=== PATIENT | male | born 1970 | race Caucasian/White ===

== ENCOUNTER 2016-09-13 18:08 | Emergency (ER) | payer MEDICAID ==
[~2016-09-13] VITALS: Ht 188 cm; Wt 77.1 kg
[2016-09-13 18:16] VITALS: BP 126/87
[2016-09-13] MEDS ORDERED: KETOROLAC TROMETHAMINE INJ 60 MG/2 ML VIAL IM ONE ×2 (18:30→18:32)
== END 2016-09-13 19:02 | disposition home or self-care (01) ==
LOC: ER 18:11
DX: M54.5 Low back pain (principal)
CPT/HCPCS: A4606; J1885; Z7610

== ENCOUNTER 2016-11-12 12:23 | Emergency (ER) | payer MEDICAID ==
[~2016-11-12] VITALS: Ht 188 cm; Wt 79.4 kg
[2016-11-12 12:23] VITALS: BP 133/75
[2016-11-12] MEDS ORDERED: IBUPROFEN 600 MG TABLET PO ONE ×2 (13:30→13:47)
--- NOTE | 2016-11-12 13:30 | NUR ---
"LATE ENTRY CHARTING" PT WAS GIVEN IBUPROFEN 600 MG ORDERED
[2016-11-12] MEDS ORDERED: CEPHALEXIN MONOHYDRATE 250 MG CAPSULE PO ONE ×2 (13:47→14:00)
== END 2016-11-12 13:57 | disposition home or self-care (01) ==
LOC: ER 12:24
DX: M25.571 Pain in right ankle and joints of right foot (principal)
CPT/HCPCS: 99283; A4606; Z7610

== ENCOUNTER 2017-06-08 11:37 | Emergency (ER) | payer MEDICAID ==
[~2017-06-08] VITALS: Ht 188 cm; Wt 74.8 kg
[2017-06-08 11:46] VITALS: BP 120/69
[2017-06-08] MEDS ORDERED: KETOROLAC TROMETHAMINE INJ 30 MG/ML VIAL ONE (12:26)
[2017-06-08] MEDS ORDERED: KETOROLAC TROMETHAMINE INJ 30 MG/ML VIAL IM ONE (12:30)
== END 2017-06-08 12:30 | disposition home or self-care (01) ==
LOC: ER 11:39
DX: M54.40 Lumbago with sciatica, unspecified side (principal)
CPT/HCPCS: A4606; J1885; Z7610

== ENCOUNTER 2020-02-18 09:28 | Emergency (ER) | payer MEDICAID ==
[~2020-02-18] VITALS: Ht 182.9 cm; Wt 79.4 kg
[2020-02-18 09:41] VITALS: BP 133/67
--- NOTE | 2020-02-18 09:47 | NUR ---
DR. RETANA AT BEDSIDE.
--- NOTE | 2020-02-18 10:40 | NUR ---
Patient discharged to home in stable condition. Written and verbal after care instructions given. Patient verbalizes understanding of instruction.
== END 2020-02-18 10:41 | disposition home or self-care (01) ==
LOC: ER 09:28
DX: S63.592A Other specified sprain of left wrist, initial encounter (principal); S63.591A Other specified sprain of right wrist, initial encounter; S33.5XXA Sprain of ligaments of lumbar spine, initial encounter; S60.221A Contusion of right hand, initial encounter; Z98.890 Other specified postprocedural states; W18.39XA Other fall on same level, initial encounter; Y93.89 Activity, other specified; Y92.89 Other specified places as the place of occurrence of the external cause; Y99.8 Other external cause status
CPT/HCPCS: 73110; 73130-TC

== ENCOUNTER 2020-10-20 13:56 | Emergency (ER) | payer MEDICAID ==
[~2020-10-20] VITALS: Ht 188 cm; Wt 79.8 kg
[2020-10-20 14:47] LABS: BASOPHILS # (AUTO) 0.1 /CMM (0.0-0.2); BASOPHILS % (AUTO) 0.7 % (0.0-2.0); EOSINOPHILS % (AUTO) 1.4 % (0.0-6.0); HEMATOCRIT 43 % (39-51); HEMOGLOBIN 13.4 g/dL (13.5-17.5); LYMPHOCYTES # (AUTO) 1.9 /CMM (0.8-4.8); LYMPHOCYTES % (AUTO) 21.2 % (20.0-44.0); MEAN CORPUSCULAR HGB CONC 31 g/dl (31.0-36.0); MEAN CORPUSCULAR VOLUME 64 fL (80-96); MONOCYTES # (AUTO) 0.5 /CMM (0.1-1.30); MONOCYTES % (AUTO) 5.4 % (2.0-12.0); NEUTROPHILS # (AUTO) 6.2 /CMM (1.8-8.9); NEUTROPHILS % (AUTO) 71.3 % (43.0-81.0); PLATELET COUNT (AUTO) 258 /CMM (150-450); RED BLOOD CELL COUNT(AUTO) 6.75 MIL/uL (4.5-6.0); WHITE BLOOD COUNT (AUTO) 8.7 K/uL (4.3-11.0)
[2020-10-20 14:50] LABS: CALCIUM, SERUM 9.2 mg/dL (8.5-10.1)
[2020-10-20 14:56] LABS: ALBUMIN 4.2 g/dL (3.4-5.0); BILIRUBIN,DIRECT 0.1 mg/dL (0.0-0.2); BILIRUBIN,TOTAL 0.7 mg/dL (0.2-1.0); TOTAL PROTEIN, SERUM 7.5 g/dL (6.4-8.2)
[2020-10-20] MEDS ORDERED: PANTOPRAZOLE 40 MG VIAL IV ONE (15:00)
[2020-10-20] MEDS ORDERED: PANTOPRAZOLE 40 MG VIAL ONE (15:00)
[2020-10-20] MEDS ORDERED: KETOROLAC TROMETHAMINE 15 MG/ML VIAL ONE (15:00)
[2020-10-20] MEDS ORDERED: KETOROLAC TROMETHAMINE INJ 30 MG/ML VIAL IV ONE (15:00)
--- NOTE | 2020-10-20 15:26 | NUR ---
EPGASTRIC PAIN SINCE MONDAY. TOOK ANTACID AND LAXATIVE W/ NO RELIEF. PT AAOX4, VSS. RR EVEN & UNLABORED. DENIES CP, SOB, DIZZINESS, N/V AT THIS TIME. PT SEEN & EVAL' D BY DR. MONDRAGON. MEDICATED ORDERED, PT ANT WELL. WILL CONT TO MONITOR.
[2020-10-20 15:27] LABS: BAND % (MANUAL) 2 % (0.0-5.0); BASOPHILS % (MANUAL) 0 % (0.0-2.0); EOSINOPHILS % (MANUAL) 1 % (0-4); LYMPHOCYTES % (MANUAL) 18 % (16-48); MONOCYTES % (MANUAL) 11 % (0-11.0); NEUTROPHILS % (MANUAL) 68 (42-76)
[2020-10-20 15:41] LABS: BILIRUBIN,URINE NEGATIVE (NEGATIVE); COLOR,URINE YELLOW (YELLOW); LEUKOCYTE ESTERASE ,URINE NEGATIVE (NEGATIVE); NITRITE, URINE NEGATIVE (NEGATIVE); PROTEIN,URINE NEGATIVE (NEGATIVE); UGLUCOSE NEGATIVE (NEGATIVE); UROBILINOGEN,URINE 0.2 EU/dL (0.2)
[2020-10-20 15:56] LABS: BACTERIA,URINE None seen /HPF (None Seen); RBC,URINE 0-2 /HPF (0-2); SQUAMOUS EPITHELIAL CELL,UR None Seen /HPF (None Seen); WBC,URINE 0-2 /HPF (0-3)
[2020-10-20] MEDS ORDERED: PANT20TA2 PO (16:05)
[2020-10-20 16:34] VITALS: BP 128/64
--- NOTE | 2020-10-20 16:34 | NUR ---
Patient discharged to home in stable condition. Written and verbal after care instructions given. Patient verbalizes understanding of instruction. IV removed. Catheter intact and site benign. Pressure and 4x4 applied to site. No bleeding noted.
== END 2020-10-20 16:35 | disposition home or self-care (01) ==
LOC: ER 13:57
DX: R10.13 Epigastric pain (principal); R94.31 Abnormal electrocardiogram [ECG] [EKG]; Z98.890 Other specified postprocedural states; Z79.899 Other long term (current) drug therapy
CPT/HCPCS: 36415; 76705; 80048; 80076; 81001; 83690; 85007; 85025; 93005; 96374; 96375; 99285; C9113; J1885